=== PATIENT | male | born 1940 | race Hispanic/Latino ===

== ENCOUNTER 2020-07-19 12:34 | Emergency (ER) | payer MEDICARE, MEDICAID ==
[2020-07-19] MEDS ORDERED: HYDROcodone/Acetaminophen 5/325 mg Tablet ONE (15:31)
== END 2020-07-19 16:12 | disposition home or self-care (01) ==
LOC: CSHERS 12:34
DX: E11.51 Type 2 diabetes mellitus with diabetic peripheral angiopathy without gangrene (principal); I70.213 Atherosclerosis of native arteries of extremities with intermittent claudication, bilateral legs; I10 Essential (primary) hypertension; Z79.82 Long term (current) use of aspirin; Z79.84 Long term (current) use of oral hypoglycemic drugs; Z79.899 Other long term (current) drug therapy
CPT/HCPCS: 93970

== ENCOUNTER 2020-08-10 15:05 | Observation (INO) | payer MEDICARE, MEDICAID ==
[2020-08-10 16:29] LABS: #Basophils 0.1 10x3/uL (0.0-0.2); #Eosinphils 0.4 10x3/uL (0.0-0.5); #Monocytes 0.9 10x3/uL (0.0-1.1); #Neutrophils 5.1 10x3/uL (1.5-8.4); %Basophils 0.9 % (0.0-2.0); %Eosinophils 4.9 % (0.0-6.0); %Monocytes 11.4 % (0.0-10.0); %Neutrophils 63.8 % (40.0-75.0); Hemoglobin 9.7 g/dL (13.5-17.5); Mean Corpuscular HGB CONC 31.9 g/dL (32.0-36.0); Mean Corpuscular Hemoglobin 32.8 pg (27.0-33.0); Mean Corpuscular Volume 102.7 fl (81.2-95.1); Mean Platelet Volume 10.1 fl (7.4-10.4); Platelet Count 214 10x3/uL (150-450); RBC Distribution Width 14.2 % (11.5-14.5); Red Blood Cell (RBC) Count 2.96 10x6/uL (4.32-5.72)
[2020-08-10 16:32] LABS: ALT (SGPT) 24 U/L (8-55); AST (SGOT) 23 U/L (5-34); Albumin 3.3 g/dL (3.4-4.8); Alkaline Phosphatase 121 U/L (40-110); Anion Gap 15 mmol/L (10-20); BUN (Urea Nitrogen) 51 mg/dL (8.4-25.7); Bilirubin, Total 0.3 mg/dL (0.2-1.2); Calc. Creatinine Clearance 0 mL/min (70-130); Calcium 8.7 mg/dL (7.8-10.44); Carbon Dioxide 25 mmol/L (23-31); Chloride 106 mmol/L (98-107); Globulin 3.6 g/dL (2.4-3.5); Glucose 121 mg/dL (83-110); Potassium 4.6 mmol/L (3.5-5.1); Protein, Total 6.9 g/dL (5.8-8.1); Sodium 141 mmol/L (136-145)
[2020-08-10 16:35] LABS: Bilirubin Neg (Negative); Blood, Urine 250 (Negative); Clarity Cloudy (Clear); Glucose, Urine (Dipstick) Normal (Negative); Ketone, Urine Negative (Negative); Leukocyte 500 (Negative); Nitrite Negative (Negative); Protein, Urine (Dipstick) 30 mg/dl (Neg-Trace); Urobilinogen Normal mg/dL (Less than 2)
[2020-08-10 16:46] LABS: Bacteria/HPF None Seen HPF (None Seen); RBC/HPF Greater than 50 HPF (0-3); Squamous Epithelial 0-3 HPF (0-3)
[2020-08-10 16:46] LABS: PTT 48.6 sec (22.0-33.0); Prothrombin Time 61.1 sec (9.5-12.1)
[2020-08-10] MEDS ORDERED: cefTRIAXone\\ROCEPHIN 2 GM VIAL ONE (17:41)
[2020-08-10] MEDS ORDERED: Acetaminophen 325 MG TAB PO PRN (17:52)
[2020-08-10] MEDS ORDERED: Phytonadione 10 MG/ML AMP ONE (18:15)
[2020-08-10 19:05] LABS: PTT 46.2 sec (22.0-33.0)
[2020-08-10 19:20] LABS: INR-International Normal Ratio 5.8
[2020-08-10] MEDS ORDERED: Mirtazapine 15 MG TAB PO SCH (21:00)
[2020-08-10 22:01] VITALS: BMI 36.6
[2020-08-11 04:28] LABS: #Eosinphils 0.5 10x3/uL (0.0-0.5); #Monocytes 0.9 10x3/uL (0.0-1.1); %Basophils 0.5 % (0.0-2.0); %Eosinophils 5.5 % (0.0-6.0); %Lymphocytes 21.1 % (18.0-47.0); %Monocytes 11.5 % (0.0-10.0); %Neutrophils 60.7 % (40.0-75.0); Hemoglobin 9.7 g/dL (13.5-17.5); Mean Corpuscular Hemoglobin 33.3 pg (27.0-33.0); Mean Corpuscular Volume 104.1 fl (81.2-95.1); Mean Platelet Volume 9.9 fl (7.4-10.4); Platelet Count 205 10x3/uL (150-450); RBC Distribution Width 13.9 % (11.5-14.5); Red Blood Cell (RBC) Count 2.91 10x6/uL (4.32-5.72); White Blood Cell (WBC) Count 8.2 10x3/uL (3.5-10.5)
[2020-08-11] MEDS ORDERED: Furosemide 40 MG TAB PO SCH (07:30)
[2020-08-11] MEDS ORDERED: glyBURIDE 5 MG TAB PO SCH (08:00)
[2020-08-11] MEDS ORDERED: Carvedilol 25 MG TAB PO SCH (08:00)
[2020-08-11] MEDS ORDERED: Potassium Chloride 10 MEQ TAB PO SCH (08:00)
[2020-08-11] MEDS ORDERED: Ferrous Sulfate 325 MG TAB PO SCH (08:00)
[2020-08-11] MEDS ORDERED: Alogliptin 25 MG TAB PO SCH (09:00)
[2020-08-11 09:52] LABS: INR-International Normal Ratio 2.5; PTT 35.4 sec (22.0-33.0); Prothrombin Time 26.2 sec (9.5-12.1)
[2020-08-11 12:46] VITALS: BP 122/61; TEMP 96.9
[2020-08-11 16:41] LABS: SARS-CoV-2 PCR by NAA Not Detected (NotDetected)
[2020-08-11] MEDS ORDERED: Atorvastatin Calcium 20 MG TAB PO SCH (21:00)
== END 2020-08-11 15:36 | disposition home or self-care (01) ==
LOC: CSHERS 15:05 → CSHTELE 21:28
PROVIDERS: ADMIT Family Medicine; ATTEND Internal Medicine
DX: I42.9 Cardiomyopathy, unspecified (principal); R79.1 Abnormal coagulation profile; N39.0 Urinary tract infection, site not specified; I48.20 Chronic atrial fibrillation, unspecified; E11.22 Type 2 diabetes mellitus with diabetic chronic kidney disease; I12.9 Hypertensive chronic kidney disease with stage 1 through stage 4 chronic kidney disease, or unspecified chronic kidney disease; N18.4 Chronic kidney disease, stage 4 (severe); D63.1 Anemia in chronic kidney disease; Z79.01 Long term (current) use of anticoagulants; M10.9 Gout, unspecified; Z79.899 Other long term (current) drug therapy; Z79.82 Long term (current) use of aspirin; I25.10 Atherosclerotic heart disease of native coronary artery without angina pectoris; Z86.73 Personal history of transient ischemic attack (TIA), and cerebral infarction without residual deficits; Z95.810 Presence of automatic (implantable) cardiac defibrillator; Z20.822 Contact with and (suspected) exposure to COVID-19
CPT/HCPCS: 74176; 80053; 82962; 84484; 84550; 85025 ×2; 85610 ×3; 85730 ×3; 87086; 93005; 93306; 96365; 99285; G0378 ×3; U0003; U0005; 36415; 36416; 81003; 81015; 87635; 93010; J0696; J3430

== ENCOUNTER 2020-11-27 15:59 | Observation (INO) | payer MEDICARE, MEDICAID ==
[2020-11-27 16:45] LABS: #Basophils 0.1 10x3/uL (0.0-0.2); #Eosinphils 0.4 10x3/uL (0.0-0.5); #Neutrophils 9.4 10x3/uL (1.5-8.4); %Basophils 0.6 % (0.0-2.0); %Eosinophils 3.5 % (0.0-6.0); %Lymphocytes 11.3 % (18.0-47.0); %Monocytes 8.1 % (0.0-10.0); Hemoglobin 11.8 g/dL (13.5-17.5); Mean Corpuscular HGB CONC 32.9 g/dL (32.0-36.0); Mean Corpuscular Hemoglobin 32.8 pg (27.0-33.0); Mean Corpuscular Volume 99.7 fl (81.2-95.1); Mean Platelet Volume 10.5 fl (7.4-10.4); Platelet Count 200 10x3/uL (150-450); RBC Distribution Width 13.3 % (11.5-14.5); White Blood Cell (WBC) Count 12.4 10x3/uL (3.5-10.5)
[2020-11-27 17:16] LABS: CKMB 2.4 ng/mL (0-6.6)
[2020-11-27 17:41] LABS: ALT (SGPT) 27 U/L (8-55); AST (SGOT) 33 U/L (5-34); Albumin 3.9 g/dL (3.4-4.8); Alkaline Phosphatase 107 U/L (40-110); Anion Gap 17 mmol/L (10-20); BUN (Urea Nitrogen) 44 mg/dL (8.4-25.7); Bilirubin, Total 0.4 mg/dL (0.2-1.2); Calc. Creatinine Clearance 0 mL/min (70-130); Calcium 9.2 mg/dL (7.8-10.44); Carbon Dioxide 22 mmol/L (23-31); Chloride 108 mmol/L (98-107); Globulin 3.3 g/dL (2.4-3.5); Potassium 5.4 mmol/L (3.5-5.1); Protein, Total 7.2 g/dL (5.8-8.1); Sodium 142 mmol/L (136-145)
[2020-11-27 18:01] LABS: Glucose 29 mg/dL (83-110)
[2020-11-27 19:39] LABS: Magnesium 2.2 mg/dL (1.6-2.6)
[2020-11-27 19:52] LABS: SARS-CoV-2 NAA Rapid Test Not Detected (NotDetected)
[2020-11-27] MEDS ORDERED: Ondansetron ODT 4 MG TAB PO PRN (20:23)
[2020-11-27] MEDS ORDERED: Acetaminophen 325 MG TAB PO PRN (20:23)
[2020-11-27] MEDS ORDERED: Ondansetron PF 4 MG/2 ML Vial IVP PRN (20:23)
[2020-11-27] MEDS ORDERED: Dextrose 50% Abboject 50 ML SYRINGE SLOW IVP PRN (20:25)
[2020-11-27] MEDS ORDERED: Dextrose 5% in Water 1,000 ML IV PRN (20:25)
[2020-11-27] MEDS ORDERED: Atorvastatin Calcium 10 MG TAB PO SCH (21:00)
[2020-11-27 21:05] LABS: Prothrombin Time 54.7 sec (9.5-12.1)
[2020-11-27 21:26] LABS: INR-International Normal Ratio 5.3
[2020-11-27 22:56] LABS: Anion Gap 13 mmol/L (10-20); BUN (Urea Nitrogen) 41 mg/dL (8.4-25.7); Calc. Creatinine Clearance 0 mL/min (70-130); Calcium 9.4 mg/dL (7.8-10.44); Carbon Dioxide 25 mmol/L (23-31); Chloride 109 mmol/L (98-107); Potassium 4.4 mmol/L (3.5-5.1); Sodium 143 mmol/L (136-145)
[2020-11-27 22:59] LABS: Glucose 53 mg/dL (83-110)
[2020-11-27] MEDS ORDERED: Dextrose 50% Abboject 50 ML SYRINGE ONE (23:04)
[2020-11-28 01:14] VITALS: BMI 37.8
[2020-11-28] MEDS ORDERED: Dextrose 5 %-0.45 % NaCl 1,000 ML IV SCH (03:15)
[2020-11-28] MEDS ORDERED: Acetaminophen 325 MG TAB ONE (03:34)
[2020-11-28 04:48] LABS: #Basophils 0.1 10x3/uL (0.0-0.2); #Eosinphils 0.4 10x3/uL (0.0-0.5); #Monocytes 1.2 10x3/uL (0.0-1.1); #Neutrophils 6.1 10x3/uL (1.5-8.4); %Basophils 0.6 % (0.0-2.0); %Eosinophils 4.5 % (0.0-6.0); %Lymphocytes 19.8 % (18.0-47.0); %Monocytes 12.4 % (0.0-10.0); %Neutrophils 62.1 % (40.0-75.0); Hemoglobin 10.8 g/dL (13.5-17.5); Mean Corpuscular HGB CONC 32.9 g/dL (32.0-36.0); Mean Corpuscular Volume 100.3 fl (81.2-95.1); Platelet Count 163 10x3/uL (150-450); RBC Distribution Width 13.5 % (11.5-14.5); Red Blood Cell (RBC) Count 3.27 10x6/uL (4.32-5.72); White Blood Cell (WBC) Count 9.8 10x3/uL (3.5-10.5)
[2020-11-28 04:59] LABS: ALT (SGPT) 19 U/L (8-55); AST (SGOT) 22 U/L (5-34); Albumin 3.4 g/dL (3.4-4.8); Alkaline Phosphatase 90 U/L (40-110); Anion Gap 13 mmol/L (10-20); BUN (Urea Nitrogen) 38 mg/dL (8.4-25.7); Bilirubin, Total 0.4 mg/dL (0.2-1.2); Calc. Creatinine Clearance 26 mL/min (70-130); Calcium 9.1 mg/dL (7.8-10.44); Carbon Dioxide 25 mmol/L (23-31); Chloride 108 mmol/L (98-107); Globulin 3.1 g/dL (2.4-3.5); Glucose 133 mg/dL (83-110); Magnesium 2.1 mg/dL (1.6-2.6); Potassium 4.5 mmol/L (3.5-5.1); Protein, Total 6.5 g/dL (5.8-8.1); Sodium 141 mmol/L (136-145)
[2020-11-28 05:21] LABS: Prothrombin Time 47.7 sec (9.5-12.1)
[2020-11-28 05:42] LABS: INR-International Normal Ratio 4.6
[2020-11-28] MEDS ORDERED: Cholecalciferol 1,000 UNITS (25 MCG) TAB PO SCH (09:00)
[2020-11-28] MEDS ORDERED: Aspirin 81 mg Enteric Coated Tablet PO SCH (09:00)
[2020-11-28] MEDS ORDERED: Ferrous Sulfate 325 MG TAB PO SCH (09:00)
[2020-11-28 11:35] LABS: Hemoglobin A1c 5.3 % (4.0-6.0)
== END 2020-11-28 12:22 | disposition home or self-care (01) ==
LOC: CSHERS 15:59 → CSHERHOLD 19:51 → INTOOBSV 19:51
PROVIDERS: ADMIT Internal Medicine; ATTEND Hospitalist
DX: R79.1 Abnormal coagulation profile (principal); E16.2 Hypoglycemia, unspecified; G93.41 Metabolic encephalopathy; N17.9 Acute kidney failure, unspecified; E11.9 Type 2 diabetes mellitus without complications; E66.9 Obesity, unspecified; Z79.899 Other long term (current) drug therapy; Z79.82 Long term (current) use of aspirin; M10.9 Gout, unspecified; I12.9 Hypertensive chronic kidney disease with stage 1 through stage 4 chronic kidney disease, or unspecified chronic kidney disease; N18.4 Chronic kidney disease, stage 4 (severe); Z79.01 Long term (current) use of anticoagulants; I42.9 Cardiomyopathy, unspecified; Z20.822 Contact with and (suspected) exposure to COVID-19
CPT/HCPCS: 71045; 80048; 80053 ×2; 82553; 82962 ×2; 83036; 83735 ×2; 83880; 84484; 85025 ×2; 85610 ×2; 93005; G0378 ×2; U0002; 36415; 36416; 96374

== ENCOUNTER 2024-11-22 08:56 | Outpatient (CLI) | payer MEDICARE, MEDICAID | END 2024-11-22 08:57 | disposition home or self-care (01) | LOC: CSHWCC 08:56 | PROVIDERS: ATTEND Nurse Practitioner Family | DX: E11.621 Type 2 diabetes mellitus with foot ulcer (principal); L97.512 Non-pressure chronic ulcer of other part of right foot with fat layer exposed | CPT/HCPCS: 97597; G0463; 99213 ==

== ENCOUNTER 2024-12-06 10:04 | Outpatient (CLI) | payer MEDICARE, MEDICAID | END 2024-12-06 10:05 | disposition home or self-care (01) | LOC: CSHWCC 10:04 | PROVIDERS: ATTEND Nurse Practitioner Family | DX: E11.621 Type 2 diabetes mellitus with foot ulcer (principal); L97.512 Non-pressure chronic ulcer of other part of right foot with fat layer exposed | CPT/HCPCS: 11042 ==

== ENCOUNTER 2024-12-20 10:26 | Outpatient (CLI) | payer MEDICARE, MEDICAID | END 2024-12-20 10:27 | disposition home or self-care (01) | LOC: CSHWCC 10:26 | PROVIDERS: ATTEND Nurse Practitioner Family | DX: E11.621 Type 2 diabetes mellitus with foot ulcer (principal); L97.512 Non-pressure chronic ulcer of other part of right foot with fat layer exposed | CPT/HCPCS: 11042 ==

== ENCOUNTER 2024-12-27 08:41 | Outpatient (CLI) | payer MEDICARE, MEDICAID | END 2024-12-27 08:42 | disposition home or self-care (01) | LOC: CSHWCC 08:41 | PROVIDERS: ATTEND Nurse Practitioner Family | DX: E11.621 Type 2 diabetes mellitus with foot ulcer (principal); L97.512 Non-pressure chronic ulcer of other part of right foot with fat layer exposed | CPT/HCPCS: 99212; G0463 ==